=== PATIENT | male | born 1965 | race Caucasian/White ===

== ENCOUNTER 2020-08-27 16:16 | Emergency (ER) | payer OTHER ==
[~2020-08-27] VITALS: Ht 182.9 cm; Wt 69.0 kg
[2020-08-27 16:41] VITALS: BP 131/77
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
== END 2020-08-27 17:16 | disposition left against medical advice (07) ==
LOC: ER 16:16
DX: M54.5 Low back pain (principal); M54.6 Pain in thoracic spine; G89.11 Acute pain due to trauma; F17.200 Nicotine dependence, unspecified, uncomplicated; F10.20 Alcohol dependence, uncomplicated; Y90.9 Presence of alcohol in blood, level not specified; Y08.89XA Assault by other specified means, initial encounter; Y93.89 Activity, other specified; Y92.89 Other specified places as the place of occurrence of the external cause; Y99.8 Other external cause status
CPT/HCPCS: 99283